=== PATIENT | female | born 1955 | race Caucasian/White ===

== ENCOUNTER → 2016-11-25 | Outpatient (CLI) | payer OTHER ==
--- NOTE | 2016-11-25 09:45 | MRI ---
HISTORY: Cervicalgia. Study: MRI cervical spine without contrast. Comparison: None. Technique: Multiplanar multisequence MRI of the cervical spine was obtained utilizing standard depar tmental protocol. Findings: The visualized posterior fossa appears normal. No cerebellar tonsillar ectopia. Straightening of the normal cervical lordosis, which may represent positioning versus muscle spasm. No acute fracture or listhesis. Multilevel disc desiccation with mild/moderate disk height loss at C4 through C6. Associ ated type 2 Modic endplate changes. There is dilatation of the central canal posterior to the C5 thr ough C7 vertebral bodies. No obvious associated mass. Remaining spinal cord demonstrates normal cour se, caliber, and signal characteristics. The prevertebral soft tissues are normal. C2 -- C3: No significant disc bulge, neural foraminal narrowing, or spinal canal stenosis. C3 -- C4: No significant disc bulge, neural foraminal narrowing, or spinal canal stenosis. C4 -- C5: Broad-based disc bulge and associated uncovertebral hypertrophy causing moderate left and mild right neural foraminal narrowing. Spinal canal stenosis to 10 mm. C5 -- C6: Broad-based disc bulge and associated uncovertebral hypertrophy causing mild bilateral bernice ral foraminal narrowing. Spinal canal stenosis to 11 mm. C6 -- C7: No significant disc bulge, neural foraminal narrowing, or spinal canal stenosis. C7 -- T1: No significant disc bulge, neural foraminal narrowing, or spinal canal stenosis. IMPRESSION: 1. Multilevel degenerative changes of the cervical spine, which are worse at C4 through C6 with broa d-based disc bulge and uncovertebral hypertrophy causing mild to moderate neural foraminal narrowing . Spinal canal stenosis to 10 mm. 2. Nonspecific dilatation of the central canal of the spinal cord posterior to the C5 through C7 roly tebral bodies. No obvious Chiari malformation. This finding is nonspecific. Differential diagnosis i ncludes, but is not limited to: Congenital patent central canal, trauma, infection, or associated ma ss. Recommend MRI of the cervical spine with contrast for further characterization. Reported By:
== END | disposition home or self-care (01) ==
LOC: RAD 08:21
PROVIDERS: ATTEND Nurse Practitioner Family
DX: M25.511 Pain in right shoulder (principal); M54.2 Cervicalgia; M79.601 Pain in right arm; Z82.61 Family history of arthritis
CPT/HCPCS: 72141

== ENCOUNTER → 2016-12-30 | Outpatient (CLI) | payer BC ==
[2016-12-30 15:15] LABS: CREATININE 0.69 mg/dL (0.55-1.02)
--- NOTE | 2017-01-02 15:09 | MRI ---
HISTORY: Follow up abnormal MRI November 25, 2016 Study: MRI cervical spine with and without contrast Comparison: MRI cervical spine without contrast November 25, 2016 Technique: Multi planar multi sequence pre and post-contrast images Findings: The vertebral body alignment and bone signal is normal. Once again noted is mild dilatation of the c entral spinal canal from the inferior aspect of C5 through C7 unchanged in appearance from the prior examination. There is no associated enhancing lesions within the spinal cord to suggest spinal cord neoplasm. There is no evidence for enhancing lesions to suggest active infection. There are no beckman ges in the previously described degenerative disc and degenerative joint changes at C4-5 and C5-6. N o new findings are identified. IMPRESSION: Dilatation of the central spinal canal once again noted from the inferior aspect of C5 through C7 bu t without evidence for enhancing cord lesions to suggest neoplasm or infection. This finding could b e congenital or posttraumatic. No other changes when compared with the prior examination Reported By:
== END ==
LOC: RAD 14:35
PROVIDERS: ATTEND Neurological Surgery
DX: M47.22 Other spondylosis with radiculopathy, cervical region (principal)
CPT/HCPCS: 36415; 72156; 82565; 84520